=== PATIENT | female | born 1940 | race Caucasian/White ===

== ENCOUNTER → 2023-08-29 18:23 | Outpatient (REF) | payer MEDICARE, BC, SELFPAY ==
[2023-08-29 19:40] LABS: Urine Albumin Negative (Neg - Trace); Urine Bilirubin Negative (Negative); Urine Character Clear (Clear); Urine Color Yellow; Urine Glucose Negative (Negative); Urine Ketone Negative (Negative); Urine Leukocyte 2+ (Negative); Urine Nitrite Negative (Negative); Urine Occult Blood Negative (Negative); Urine Urobilinogen 2+ (Neg - 1+)
[2023-08-29 19:52] LABS: Urine Squamous Cell >30 /LPF (Few)
[2023-08-29 19:53] LABS: Urine Bacteria Many (Negative); Urine Red Blood Cell 0-2 /HPF (0-2); Urine White Cell 40-50 /HPF (0-5)
== END ==
LOC: OLABWHC 18:23
PROVIDERS: ATTENDING PHYSICIAN Family Medicine
DX: N39.0 Urinary tract infection, site not specified (principal)
CPT/HCPCS: 81003; 81015; 87077; 87086; 87186

== ENCOUNTER 2023-09-01 18:41 | Inpatient (IN) | payer MEDICARE, BC, SELFPAY ==
[2023-09-01] VITALS (8 sets, daily range): BP systolic 130–157; BP diastolic 69–84; BMI 26.0; BMI 24.5
[2023-09-01 15:28] LABS: % Basophils 0.7 % (0-2); % Eosinophils 2.1 % (0-6); % Immature Granulocytes 0.3 % (0-0.5); % Lymphocytes 17.3 % (20.5-51.1); % Monocytes 7.6 % (1.7-9.3); Absolute Basophils 0.1 10^3/uL (0-0.2); Absolute Eosinophils 0.2 10^3/uL (0-0.7); Absolute Lymphocytes 1.3 10^3/uL (1.2-3.4); Absolute Monocytes 0.6 10^3/uL (0.1-0.6); Absolute Neutrophils 5.4 10^3/uL (1.4-6.5); Hematocrit 35.2 % (37.0-47.0); Mean Corp Hgb Conc. 34.1 g/dL (33.0-37.0); Mean Corpuscular Hgb 30.8 pg (27.0-31.0); Mean Corpuscular Volume 90.5 fL (81.0-99.0); Mean Platelet Volume 8.8 fL (7.4-10.4); Nucleated Red Blood Cells % 0 %; Platelet Count 276 10^3/uL (130-400); Red Blood Cell Count 3.89 10^6/uL (4.20-5.40); Red Cell Dist. Width 13.4 % (11.5-14.5); White Blood Cell Count 7.5 10^3/uL (4.8-10.8)
[2023-09-01 15:41] LABS: ALT (SGPT) 24 U/L (0-35); AST (SGOT) 31 U/L (14-36); Albumin 4.1 g/dl (3.5-5.0); Alkaline Phosphatase 115 U/L (38-126); Blood Urea Nitrogen 17 mg/dl (7-17); Calcium 9.1 mg/dl (8.4-10.2); Carbon Dioxide 24 mmol/L (22-30); Chloride 106 mmol/L (98-107); Estimated Creatinine Clearance 31 ml/min; Glucose 117 mg/dl (70-99); Potassium 3.5 mmol/L (3.5-5.1); Sodium 138 mmol/L (135-145); Total Bilirubin 0.4 mg/dl (0.2-1.3); eGFR 49.24
[2023-09-01 16:03] LABS: Urine Albumin Trace (Neg - Trace); Urine Bilirubin Negative (Negative); Urine Character Very Cloudy (Clear); Urine Color Yellow; Urine Glucose Negative (Negative); Urine Ketone Trace (Negative); Urine Leukocyte 2+ (Negative); Urine Nitrite Negative (Negative); Urine Occult Blood Trace (Negative); Urine Specific Gravity 1.015 (<1.030); Urine Urobilinogen 1+ (Neg - 1+)
[2023-09-01 16:23] LABS: Urine Bacteria Many (Negative); Urine Red Blood Cell 0-2 /HPF (0-2); Urine Squamous Cell >30 /LPF (Few); Urine White Cell 50-60 /HPF (0-5)
--- NOTE | 2023-09-01 16:57 | ED.GENMED ---
History of Present Illness
General
Chief Complaint: Urinary Symptoms
Source: patient
Exam Limitations: none
Time Seen by Provider: 09/01/23 15:41
Nursing documentation reviewed up to this point in time: agreed with
Travel History
Have you had any contact with someone who has COVID-19?: No
Do you have any symptoms of coronavirus? Fever > 100 degrees, chills, cough, shortness of breath, sore throat, loss of taste or smell, muscle aches, or headache?: No
History of Present Illness
History of Present Illness:
83-year-old female with past medical history of hypertension hyperlipidemia dementia anemia anxiety depression presenting to the emergency department today with concerns of altered mental status and difficulty with ambulation. She was also found to
have a urinary tract infection a few days ago but was not treated.
Past History
Past History
ED Past Medical History: HTN, Hypercholesterolemia, Psychiatric (Depression, anxiety) and Other (Dementia, iron deficiency anemia)
ED Past Surgical History: None
Social History
Tobacco: Former smoker
Personal:
Living: assisted living
Employment: Retired
Review of Systems
Review of Systems
Allergies reviewed?: Yes
All Other Systems: ROS reviewed and negative except as documented in HPI and ROS
Phy Exam
Physical Exam
Physical Exam:
GENERAL: Alert , in no apparent distress
EYE: pupils equal and reactive
NECK: Supple, no significant adenopathy.
ENT: o/p clr, mmm.
CARDIAC: Regular rate and rhythm .
LUNGS: Clear breath sounds bilaterally, no acute respiratory distress, no wheezes/rales/rhonchi
ABDOMEN: Soft, without focal tenderness, no r/g, no cvat
NEUROLOGICAL: Alert, no focal neuro deficits
SKIN: Warm and dry, skin intact.
MUSCULOSKELETAL: No edema, well perfused.
PSYCH: Normal and appropriate interaction.
Course
Orders/Labs/Results
Orders:
Orders
09/01/23 15:21
CMP [Comprehensive Metabolic Panel] Urgent
Complete Blood Count/With Diff Urgent
09/01/23 15:45
Urinalysis Reflex To Culture Urgent
Date Specimen was Collected: 09/01/23
Time Specimen was Collected: 15:43
Urine Microscopic Reflex Cult Urgent
Urine Culture Urgent
ANABELLA Source: U
Specimen Description:
Date Specimen was Collected: 09/01/23
Time Specimen was Collected: 15:43
09/01/23 16:57
CefTRIAXone [Rocephin] 2,000 mg IV NOW STA
09/01/23 17:00
Case Management Consult ONCE
Case Management Consult: Discharge Planning
09/01/23 17:11
CR Hand - Right Min 3 Views Urgent
Comment:
Reason For Exam: hand injury
Abnormal Lab Results
09/01/23 09/01/23
15:21 15:45
RBC 3.89 L 10^6/uL
(4.20-5.40)
Hct 35.2 L %
(37.0-47.0)
Lymphocytes % 17.3 L %
(20.5-51.1)
Creatinine 1.1 H mg/dL
(0.6-1.0)
Glucose 117 H mg/dl
(70-99)
Urine Ketones Trace A
(Negative)
Ur Occult Blood Reflex Trace A
(Negative)
Leukocyte Esterase Rfl 2+ A
(Negative)
Urine WBC (Reflex) 50-60 A /HPF
(0-5)
Urine Bacteria (Reflex) Many A
(Negative)
09/01/23 15:21
09/01/23 15:21
Vital Signs
Initial and Last Documented VS:
Initial Vital Signs
Temp Pulse Resp BP Pulse Ox
98.1 F 69 18 130/73 94
09/01/23 14:57 09/01/23 14:57 09/01/23 14:57 09/01/23 14:57 09/01/23 14:57
Last Documented Vital Signs
Temp Pulse Resp BP Pulse Ox
98.1 F 69 18 130/73 94
09/01/23 14:57 09/01/23 14:57 09/01/23 14:57 09/01/23 14:57 09/01/23 14:57
MDM/Problems Addressed
MDM/Problems Addressed:
83-year-old female presenting to the emergency department today with concerns of difficulty ambulating and increased weakness over the past 2 days confirm with UTI few days ago but was not treated at the time. On arrival here vital signs are normal
urinalysis appears to be consistent with UTI as well as her outpatient labs appear to be consistent with UTI and started on antibiotics. Concerning she is unable to walk and is not in a facility that currently would be able to accommodate a higher
level of care plan to admit overnight for reassessment and hopeful improvement.
*Critical Care Note
Total Time (30-74mins, 75-104mins- exclusive of procedures): Not Applicable
ED Attending Note
-
Portions of this chart may have been created with voice recognition software.� Occasional wrong word or��sound alike� substitutions may have occurred due to the inherent limitations of voice recognition software.
Discharge Plan
Departure
Patient Disposition: Admit
Date of Disposition: 09/01/23
Time of Disposition: 17:12
Admit to: Med/Surg
Admit to doctor: Valeriy
Presentation/result/management discussed w/ accepting MD/DO: Hospitalist
Patient with high blood pressure during this ER visit?: No
Condition: Good
Covid-19: Not Applicable
Discharge Problem:
UTI (urinary tract infection), Fall
Prescriptions:
No Action
acetaminophen 325 MG tablet
650 mg PO Q6HPRN PRN (Reason: mild pain/fever)
donepezil 10 MG tablet
10 mg PO HS
melatonin 5 MG tablet
5 mg PO HS
therapeutic multivitamin Tablet
1 tab PO DAILY
guaifenesin 100 mg/5 mL Liquid
200 mg PO Q6H PRN (Reason: cough)
cranberry extract 250 mg Capsule
250 mg PO DAILY
magnesium hydroxide [Milk of Magnesia] 400 mg/5 mL Suspension
30 ml PO DAILY PRN (Reason: if no BM in 3 days)
bisacodyl 10 mg Suppository
10 mg FL DAILY PRN (Reason: if no BM in 8 hr after MOM)
irbesartan-hydrochlorothiazide 300-12.5 mg Tablet
1 tab PO DAILY
Fleet Enema 19-7 gram/118 mL Enema
118 ml FL DAILY PRN (Reason: if no BM 4 hr after bisacodyl supp)
pantoprazole 40 MG tablet,delayed release (DR/EC)
40 mg PO DAILY
aspirin 325 mg Tablet
325 mg PO DAILY Qty: 30 0RF
atorvastatin 10 mg Tablet
10 mg PO QPM Qty: 30 0RF
tramadol 50 mg Tablet
50 mg PO Q6HPRN PRN (Reason: SEVERE PAIN) Qty: 14 0RF
amoxicillin-pot clavulanate 875-125 mg Tablet
1 tab PO Q12 Qty: 4 0RF
Referrals:
Jorge Luis Colbert MD [Family Provider] -
Interventions
Interventions:
*Risk Screen - Suicide Last Done: 09/01/23 14:57
*General Assessment Last Done: 09/01/23 15:01
*Neglect/Abuse Screening Last Done: 09/01/23 15:01
ED- Fall Risk Assessment Last Done: 09/01/23 15:03
*ED COVID-19 Vaccine History Last Done: 09/01/23 15:01
ED-Female Genitourinary Assessment Last Done: 09/01/23 15:03
[2023-09-01] MEDS: ROCEPHIN 2000 MG IV (17:35)
--- NOTE | 2023-09-01 17:38 | HPS.HSE ---
Addendum entered and electronically signed by Holly Lara MD 09/01/23 18:34:
pt seen and examined independently--agree with EMT DISPATCHER note
GENERAL: well developed, well nourished, female in no apparent distress
HEENT: NC/AT--no O2 neds
HEART: regular rate and rhythm, +S1, +S2
LUNGS : clear to auscultation bilaterally
ABDOM: soft, nontender, nondistended, + bowel sounds
EXT: no cyanosis, clubbing, or edema--right 5th finger with deformity (? Dupuytren's contracture?)
NEUROLOGIC: apparent dementia--moves all extremities
Ambulatory dysfunction/falls/generalized weakness--likely from UTI but UA from 08/28 AND 08/31 both show > 30 squamous cells/hpf indicating not clean sample (contaminant)---Hand x-ray with no acute fracture or dislocation--check head CT for
completeness, recheck st cath specimen for UA C&S--nevertheless, will treat with rocephin in the interim--bladder scan--PT/OT
Suspected Urinary tract infection but both samples are not clean catch (see above)--recheck st cath --cont rocephin and follow cultures
Acute kidney injury likely from dehydration--Creatinine 1.1--normal saline continued--monitor BMP in am
Dementia--cont aricept--pt lives at [facility]
Depression/anxiety--cont Abilify Bupropion, BuSpar, duloxetine
essential HTN--hold losartan and HCTZ due to ARA
GERD--PPI continued
HLD--statin continued
DVT prophylaxis--heparin sq
Code status --DNR
Original Note:
Family Physician
-
Family Physician: Jorge Luis Colbert
Chief Complaint
-
confusion
generalized weakness
fall
History of Present Illness
83-year-old female with past medical history of hypertension hyperlipidemia dementia anemia anxiety depression presenting to the emergency department today with concerns of change in MS, weakness, fall. daughter stated urinary frequency and
dribbling for past few days. she was tested positive for UA on Sunday. she was not started on abx as they were waiting for urine culture. for past few days, patient had multiple falls. today she was found on the floor by nurses. she is
complaining of left hand pain since then. denied fever, chills, MULLINS,dizzy or syncopal episode. denied chest pain, sob. denied abdominal pain, n,v,d. denied dysuria or hematuria.
positive UA in ER. received a dose of ceftriaxone in ER. admitting for further management.
Medical History
Past Medical History
Past Medical History: Reports Other
Additional Past Medical History:
dementia
HTn
HLD
iron def anemia
colon cancer
depression
anxiety
UTI
Past Surgical History: Reports Other
Additional Past Surgical History:
colon resection
left upper arm surgery
torn rotation cuff
Social History
Tobacco: Non-smoker
Alcohol: Occasional
Drug: None
Personal: Single
Living: Assisted Living
Family History
Family History: Not pertinent
Allergies / Home Medications
Allergies reflects when Allergies were last updated in [facility].
Home Medications with original date entered in [facility]
Allergy/Medication List:
Allergies
Allergy/AdvReac Type Severity Reaction Status Date / Time
peanut Allergy Unknown Verified 02/09/23 08:02
Home Medications
acetaminophen 325 mg tablet 650 mg PO Q6HPRN PRN mild pain/fever 07/26/20
donepezil 10 mg tablet 10 mg PO HS Neurological Condition 07/26/20
melatonin 5 mg tablet 5 mg PO HS Sleep 07/26/20
bisacodyl 10 mg rectal suppository 10 mg CO DAILY PRN if no BM in 8 hr after MOM 02/09/23
cranberry extract 250 mg capsule 250 mg PO DAILY Supplement 02/09/23
guaifenesin 100 mg/5 mL oral liquid 200 mg PO Q6H PRN cough 02/09/23
irbesartan 300 mg-hydrochlorothiazide 12.5 mg tablet 1 tab PO DAILY Blood Pressure 02/09/23
magnesium hydroxide 400 mg/5 mL oral suspension (Milk of Magnesia) 30 ml PO DAILY PRN if no BM in 3 days 02/09/23
pantoprazole 40 mg tablet,delayed release 40 mg PO DAILY Gastrointestinal Issue 02/09/23
sodium phosphates 19 gram-7 gram/118 mL enema (Fleet Enema) 118 ml CO DAILY PRN if no BM 4 hr after bisacodyl supp 02/09/23
therapeutic multivitamin 1 tab PO DAILY Supplement 02/09/23
amoxicillin 875 mg-potassium clavulanate 125 mg tablet 1 tab PO Q12 #4 tabs 02/15/23
aspirin 325 mg tablet 325 mg PO DAILY #30 tabs 02/15/23
atorvastatin 10 mg tablet 10 mg PO QPM #30 tabs 02/15/23
tramadol 50 mg tablet 50 mg PO Q6HPRN PRN SEVERE PAIN #14 tabs 02/15/23
Review of Systems
-
Constitutional: Reports No Symptoms
EENT: Reports No Symptoms
Respiratory: Reports No Symptoms
Cardiac: Reports No Symptoms
Abdomen/GI: Reports No Symptoms
: Reports Other (frequency)
Musculoskeletal: Reports No Symptoms
Skin: Reports No Symptoms
Neurological: Reports No Symptoms
Endocrine: Reports No Symptoms
Hematologic/Lymphatic: Reports No Symptoms
Psych: Reports No Symptoms
Physical Exam
Vital Signs
Vital Signs
Temp Pulse Resp BP Pulse Ox
98.1 F 69 18 130/73 94
09/01/23 14:57 09/01/23 14:57 09/01/23 14:57 09/01/23 14:57 09/01/23 14:57
Physical Exam
General: Well Developed, Well Nourished and No Apparent Distress
HEENT: NormoCephalic, Moist mucous membranes and Atraumatic
Respiratory: Clear
Cardiac: S1/S2 and Regular Rhythm; No Murmur or Rub
GI: Soft, Non Tender, Non Distended and Normal Bowel Sounds; No Organomegaly
Rectal: Deferred by Provider
Musculoskeletal: No Clubbing, No Cyanosis and No Edema
Skin: No Rash
Neuro: AO x 3 and Nonfocal/grossly intact
Psych: Calm
Laboratory Results
-
09/01/23 15:21
09/01/23 15:21
Laboratory Results
Total Bilirubin 0.4 mg/dl (0.2-1.3) 09/01/23 15:21
AST 31 U/L (14-36) 09/01/23 15:21
ALT 24 U/L (0-35) 09/01/23 15:21
Alkaline Phosphatase 115 U/L (38-126) 09/01/23 15:21
Data Reviewed
-
Lab Data: Labs Reviewed by me
Impression/Plan
-
# Ambulatory dysfunction/fall/generalized weakness l likely from UTI
-Hand x-ray with no acute fracture or dislocation. Boutonniere deformity of the fifth digit. Diffuse demineralization. Moderate degenerative changes of the basal joint. Scattered mild to moderate osteoarthritic changes of the interphalangeal joints.
Soft tissues are grossly unremarkable.
-obtain CT of head
-PT/OT consulted
-fall precuation
# Urinary tract infection
-Urine culture pending
-iv ceftriaxone
-Tylenol prn for fever, pain
-Repeat straight cath and UA
# Acute kidney injury likely from dehydration
-Creatinine 1.1
-normal saline continued
-monitor BMP in am
#Dementia
#Depression anxiety
-Abilify Bupropion, BuSpar continued
-duloxetine continued
-Aricept continued
#essential HTN
-hold losartan and HCTZ due to ARA
#GERD
=PPI continued
#HLd
-statin continued
#DVT prophylaxis
-heparin sq
#DNR
--- NOTE | 2023-09-01 18:26 | PHANOTE ---
09/01/2023, med rec tech, used [place] paperwork to compile list of pt.'s meds.; [facility] only sent page 1 of 3 of pt.'s meds.; called pt.'s NH twice but was unsuccessful; could not confirm all of pt.'s meds.
[2023-09-01 19:45] LABS: Urine Albumin Trace (Neg - Trace); Urine Bilirubin Negative (Negative); Urine Character Slightly Cloudy (Clear); Urine Color Yellow; Urine Glucose Negative (Negative); Urine Ketone Trace (Negative); Urine Leukocyte 2+ (Negative); Urine Nitrite Positive (Negative); Urine Occult Blood 1+ (Negative); Urine Specific Gravity 1.015 (<1.030); Urine Urobilinogen 2+ (Neg - 1+); Urine pH 6.5 (5.0-9.0)
[2023-09-01 19:55] LABS: Urine Bacteria Moderate (Negative); Urine White Cell 80-90 /HPF (0-5)
--- NOTE | 2023-09-01 21:00 | PTCARENOTE ---
Received patient from ED via stretcher. Patient ambulated from stretcher to bed x2 assist with RW. Patient is oriented to self only, confused, yelling out at times. Urgency and frequency with urination. No complaints of pain at this time. Bed alarm
and medsitter placed for safety. Oriented patient to room and placed call rdz within reach.
[2023-09-01] MEDS: MELATONIN 5 MG PO (21:10)
[2023-09-01] MEDS: ARICEPT 10 MG PO (21:10)
[2023-09-01] MEDS: LIPITOR 10 MG PO (21:10)
[2023-09-01] MEDS: ABILIFY 5 MG PO (21:10)
[2023-09-01] MEDS: HEPARIN 5000 UNITS SC (21:10)
[2023-09-01] MEDS: NSS 1000 IV (21:12)
[2023-09-01] MEDS: BUSPAR 15 MG PO (21:25)
[2023-09-02 07:55] VITALS: BP 137/73
[2023-09-02 08:13] LABS: Hematocrit 38.2 % (37.0-47.0); Hemoglobin 12.6 g/dL (12.0-16.0); Mean Corpuscular Hgb 30.1 pg (27.0-31.0); Mean Corpuscular Volume 91.4 fL (81.0-99.0); Mean Platelet Volume 9.5 fL (7.4-10.4); Platelet Count 248 10^3/uL (130-400); Red Blood Cell Count 4.18 10^6/uL (4.20-5.40); Red Cell Dist. Width 13.2 % (11.5-14.5)
[2023-09-02] MEDS: PROTONIX 40 MG PO (08:15)
[2023-09-02] MEDS: HEPARIN 5000 UNITS SC ×2 (08:16→19:08)
[2023-09-02] MEDS: BUSPAR 15 MG PO ×4 (08:16→19:11)
[2023-09-02] MEDS: WELLBUTRIN XL (24 hour extended release) 150 MG PO (08:16)
[2023-09-02] MEDS: CYMBALTA DELAYED RELEASE 60 MG PO (08:16)
[2023-09-02 09:02] LABS: Blood Urea Nitrogen 16 mg/dl (7-17); Calcium 8.7 mg/dl (8.4-10.2); Carbon Dioxide 22 mmol/L (22-30); Chloride 107 mmol/L (98-107); Estimated Creatinine Clearance 44 ml/min; Glucose 95 mg/dl (70-99); Potassium 3.4 mmol/L (3.5-5.1); Sodium 140 mmol/L (135-145); eGFR > 60.00
[2023-09-02 09:40] VITALS: BP 100/60; BP 117/61; PULSE 66; O2SAT 95
[2023-09-02 10:02] VITALS: BP 145/68; PULSE 78
[2023-09-02] MEDS: NSS 1000 IV (11:06)
--- NOTE | 2023-09-02 12:32 | W.PN.HOSP.TC ---
Today's Communication/Plan
-
follow cultures
stop IVF
PT/OT
rocephin
Assessment / Plan
Assessment / Plan
pt is an 83 year old female
Ambulatory dysfunction/falls/generalized weakness--likely from UTI�but UA from 08/28 AND 08/31 both show > 30 squamous cells/hpf indicating not clean sample (contaminant)--repeat st cath UA adequate, culture from 08/28 shows E. coli, cont
rocephin---Hand x-ray with no acute fracture or dislocation--head CT neg--PT/OT both saying SNF vs home health
Suspected Urinary tract infection but both samples are not clean catch (see above)--recheck st cath appropriate --cont rocephin and follow cultures
hypokalemia -- replete
Acute kidney injury likely from dehydration--Creatinine 0.8--stop IVF
Dementia--cont aricept--pt lives at [facility]
Depression/anxiety--cont Abilify Bupropion, BuSpar, duloxetine
essential HTN--restart losartan and hold HCTZ
GERD--PPI continued
HLD--statin continued
DVT prophylaxis--heparin sq
Code status --DNR
Anticipated Discharge: 24 - 48 hours
Subjective/Interval History
-
Date of Service: September 02, 2023
pt eating lunch
Objective Data
-
Labs:
Laboratory Results
09/02/23
06:18
WBC 7.0
Hgb 12.6
Hct 38.2
Plt Count 248
Sodium 140
Potassium 3.4 L
Chloride 107
Carbon Dioxide 22
BUN 16
Creatinine 0.8
Glucose 95
Calcium 8.7
Vital Signs:
max temp for 24 hours
09/01/23
23:42
Temp 98.5 F
Vital Signs
Temp Pulse Resp BP Pulse Ox
98.2 F 64 20 137/73 95
09/02/23 07:55 09/02/23 07:55 09/02/23 07:55 09/02/23 07:55 09/02/23 10:37
I&O
09/01/23 09/02/23 09/03/23
06:59 06:59 06:59
Intake Total 480 / 480
Balance 480 / 480
Review of Systems
-
All other systems: Reviewed and negative
Physical Exam
-
General: Well Developed, Well Nourished and No Apparent Distress
HEENT: Normocephalic and Atraumatic
Respiratory: Clear to Auscultation; Negative Wheezes or Rhonchi
Cardiac: Regular Rhythm and S1/S2; Negative Murmur
GI: Soft, Nontender, Nondistended and Normal Bowel Sounds
Musculoskeletal: No Clubbing, No Cyanosis and No Edema
Skin: Warm
Neuro: Awake
Psych: Calm and Apparent Dementia
[2023-09-02] MEDS: KCL 40 MEQ PO (12:46)
--- NOTE | 2023-09-02 13:59 | PTCARENOTE ---
Patient screaming throughout shift to be placed on bed latham. Once bed latham is removed patient is requesting to be placed back on bed latham within a short amount of time with little to no urinary output. Educated patient that sitting on bed latham senior living
will call pressure ulcers. Despite education patient is screaming to to be on bed latham. Nursing shop supervisor made aware. Attempt redirection with assistance from carmen martinez. Patient with history of dementia.
[2023-09-02] MEDS: ATIVAN 0.25 MG IV (14:31)
--- NOTE | 2023-09-02 14:43 | PTCARENOTE ---
PRN IV ativan administered see AUG. Family now sitting with patient, update provided.
--- NOTE | 2023-09-02 15:45 | CM ---
Alert confused patient who lives at [facility] for last [address] weeks[address]oke with daughter Onelia way who said she wants her mo to return [facility] at or.She uses no adaptive devices.PT OT said SNF VS VN .She is assisted in all activities of daily
living.
No adaptive devices
Never had VN/Was in [place] and does not want to return
Pharmacy [facility]
PCP Dr Colbert
PLAN Would like to return to [facility] if possible
[2023-09-02 15:51] VITALS: BP 122/67
[2023-09-02] MEDS: ROCEPHIN 1000 MG IV (17:15)
[2023-09-02] MEDS: STERILE WATER FOR INJECTION 10 ML IV (17:15)
[2023-09-02] MEDS: ARICEPT 10 MG PO (19:07)
[2023-09-02] MEDS: LIPITOR 10 MG PO (19:08)
[2023-09-02] MEDS: ABILIFY 5 MG PO (19:08)
[2023-09-02] MEDS: MELATONIN 5 MG PO (19:08)
[2023-09-02] MEDS: DESENEX/MITRAZOL/ZEASORB 1 APPLIC TOPICAL (19:11)
[2023-09-02 23:44] VITALS: BP 153/78
[2023-09-03 07:26] LABS: Hematocrit 37.8 % (37.0-47.0); Hemoglobin 12.7 g/dL (12.0-16.0); Mean Corp Hgb Conc. 33.6 g/dL (33.0-37.0); Mean Corpuscular Hgb 30.2 pg (27.0-31.0); Mean Platelet Volume 9.2 fL (7.4-10.4); Platelet Count 236 10^3/uL (130-400); White Blood Cell Count 6.7 10^3/uL (4.8-10.8)
[2023-09-03 07:30] VITALS: BP 172/98
[2023-09-03 08:08] LABS: Blood Urea Nitrogen 12 mg/dl (7-17); Calcium 8.9 mg/dl (8.4-10.2); Carbon Dioxide 22 mmol/L (22-30); Chloride 108 mmol/L (98-107); Estimated Creatinine Clearance 44 ml/min; Glucose 99 mg/dl (70-99); Magnesium 1.8 mg/dl (1.6-2.3); Potassium 3.8 mmol/L (3.5-5.1); Sodium 138 mmol/L (135-145); eGFR > 60.00
[2023-09-03] MEDS: CYMBALTA DELAYED RELEASE 60 MG PO (09:15)
[2023-09-03] MEDS: WELLBUTRIN XL (24 hour extended release) 150 MG PO (09:15)
[2023-09-03] MEDS: PROTONIX 40 MG PO (09:15)
[2023-09-03] MEDS: COZAAR 100 MG PO (09:15)
[2023-09-03] MEDS: HEPARIN 5000 UNITS SC ×2 (09:16→19:40)
[2023-09-03] MEDS: DESENEX/MITRAZOL/ZEASORB 1 APPLIC TOPICAL ×2 (09:16→19:40)
[2023-09-03] MEDS: BUSPAR 15 MG PO ×4 (09:57→19:41)
--- NOTE | 2023-09-03 13:14 | W.PN.HOSP.TC ---
Today's Communication/Plan
-
see A/P
Assessment / Plan
Assessment / Plan
A/P:
# Ambulatory dysfunction/falls/generalized weakness, likely from UTI�
Urine Cx (although with contaminant) from 08/28 grew E coli
repeat Urine Cx from 08/31 neg
cont Rocephin, can DC with cefdinir x3 days
Of note, Hand x-ray with no acute fracture or dislocation, Head CT neg
PT/OT both saying SNF vs home health
# hypokalemia
repleted K and resolved
# Acute kidney injury, resolved
# Dementia
cont Aricept
pt lives at [facility]
# Depression/anxiety
cont Abilify Bupropion, BuSpar, duloxetine
# Essential HTN
restarted losartan
Hold [employer] HCTZ
Add Norvasc 2.5 mg
# GERD
PPI continued
# HLD
statin continued
DVT prophylaxis--heparin sq
Code status --DNR
Dispo: return to [facility] if possible�
updated daughter on the phone. She is hoping pt could work work with PT, making sure her weakness has improved, prior to discharge
total time spent 51 min
Anticipated Discharge: Within 24 hours
Subjective/Interval History
-
Date of Service: September 03, 2023
Objective Data
-
Labs:
Laboratory Results
09/03/23
06:51
WBC 6.7
Hgb 12.7
Hct 37.8
Plt Count 236
Sodium 138
Potassium 3.8
Chloride 108 H
Carbon Dioxide 22
BUN 12
Creatinine 0.8
Glucose 99
Calcium 8.9
Vital Signs:
Vital Signs
Temp Pulse Resp BP Pulse Ox
36.9 C 78 18 172/98 96
09/03/23 07:30 09/03/23 09:15 09/03/23 07:30 09/03/23 09:15 09/03/23 09:10
I&O
09/02/23 09/03/23 09/04/23
06:59 06:59 06:59
Intake Total 480 / 480 1050 / 1050
Balance 480 / 480 1050 / 1050
Review of Systems
-
All other systems: Reviewed and negative
Physical Exam
-
General: Well Developed, Well Nourished, No Apparent Distress, Comfortable and Conversant
HEENT: Normocephalic and Atraumatic
Respiratory: Clear to Auscultation and Non Labored Respirations; Negative Wheezes, Rhonchi or Accessory Resp Muscle Use
Cardiac: Regular Rhythm and S1/S2; Negative Murmur
GI: Soft, Nontender, Nondistended and Normal Bowel Sounds
Musculoskeletal: No Clubbing, No Cyanosis and No Edema
Skin: Warm
Neuro: Awake
Psych: Calm and Apparent Dementia
Data Reviewed
-
Labs: Labs Reviewed by me
[2023-09-03] MEDS: NORVASC 2.5 MG PO (13:40)
[2023-09-03 14:27] VITALS: BP 131/84; BP 145/88; PULSE 80; O2SAT 96
[2023-09-03 14:52] VITALS: BP 131/84
[2023-09-03 15:30] VITALS: BP 140/78
--- NOTE | 2023-09-03 16:08 | PTCARENOTE ---
Pt AAO to self/birthdate only, repeatedly questions 'Where am I?' and 'What is happening to me?'. CAZARES; OOB to chair/BSC/BRP with assist x1; pt impulsive and unsteady; fall prec maintained. Pt re-oriented as needed. VSS. On room air-pulse ox 96%,
no c/o SOB. Abd soft, rounded, travis PO well. Voiding clear yellow urine in BSC/BR; denies urgency/discomfort. Resting in chair at present; daughter at bedside. Will continue to monitor.
--- NOTE | 2023-09-03 17:22 | CM ---
Spoke with both sister Chante and Onelia.
PT OT recommended return to assisted living [facility].
Spoke with [facility] Zorabritney faxed PT OT evals to her . She said she can accpet her tomorrow after she sets up 1:1 nursing as family has requested.Sharon said sge will set up PT OT upon return.
At this time Onelia said she would drive her back to .
PLAN Return to [facility] report [phone] fax dc summary to [phone]
[2023-09-03] MEDS: ROCEPHIN 1000 MG IV (17:56)
[2023-09-03] MEDS: FLUSH (NSS) 1 FLUSH IV (17:56)
[2023-09-03] MEDS: STERILE WATER FOR INJECTION 10 ML IV (17:56)
[2023-09-03] MEDS: ABILIFY 5 MG PO (19:39)
[2023-09-03] MEDS: MELATONIN 5 MG PO (19:39)
[2023-09-03] MEDS: ARICEPT 10 MG PO (19:39)
[2023-09-03] MEDS: LIPITOR 10 MG PO (19:39)
[2023-09-03] MEDS: ATIVAN 0.25 MG IV (20:45)
[2023-09-03] MEDS: NSS (PRESERVATIVE FREE) 0.125 ML IV (20:45)
[2023-09-04 07:00] VITALS: BP 142/81
[2023-09-04 07:55] LABS: Hematocrit 38.5 % (37.0-47.0); Hemoglobin 13.1 g/dL (12.0-16.0); Mean Corpuscular Hgb 30.5 pg (27.0-31.0); Mean Corpuscular Volume 89.5 fL (81.0-99.0); Mean Platelet Volume 9.6 fL (7.4-10.4); Platelet Count 241 10^3/uL (130-400); Red Cell Dist. Width 13.2 % (11.5-14.5); White Blood Cell Count 6.6 10^3/uL (4.8-10.8)
[2023-09-04 08:19] LABS: Blood Urea Nitrogen 14 mg/dl (7-17); Calcium 8.9 mg/dl (8.4-10.2); Carbon Dioxide 24 mmol/L (22-30); Chloride 107 mmol/L (98-107); Estimated Creatinine Clearance 39 ml/min; Glucose 100 mg/dl (70-99); Magnesium 1.7 mg/dl (1.6-2.3); Potassium 3.7 mmol/L (3.5-5.1); Sodium 138 mmol/L (135-145); eGFR > 60.00
[2023-09-04] MEDS: PROTONIX 40 MG PO (08:38)
[2023-09-04] MEDS: WELLBUTRIN XL (24 hour extended release) 150 MG PO (08:38)
[2023-09-04] MEDS: CYMBALTA DELAYED RELEASE 60 MG PO (08:38)
[2023-09-04] MEDS: COZAAR 100 MG PO (08:38)
[2023-09-04] MEDS: DESENEX/MITRAZOL/ZEASORB 1 APPLIC TOPICAL (08:39)
[2023-09-04] MEDS: NORVASC 2.5 MG PO (08:39)
[2023-09-04] MEDS: BUSPAR 15 MG PO ×2 (08:40→12:17)
[2023-09-04] MEDS: HEPARIN 5000 UNITS SC (08:40)
--- NOTE | 2023-09-04 11:39 | PN.CDI ---
CDI
- -
CDI:
Physician Documentation Request
Admit Date: 09/01/23 18:41
Dear Doctor Elpidio,
Please review the following and provide your response in the progress notes.
Clinical Indicators:
- per H&P 'concerns of change in MS'
- baseline dementia
- RN notes 'Patient is oriented to self only, confused, yelling out at times'
- 'pt impulsive and unsteady'
- 09/02 PN indicate patient admit for UTI
Based on the above, please clarify which, if any of the following, is the most likely etiology of the confusion/altered mental status.
Metabolic encephalopathy due to UTI
Dementia with acute delirium - indicate type fo dementia, such as Alzheimer's, senile, vascular, Lewy body etc.
Baseline Dementia - indicate type, such as Alzheimer's, senile, vascular, Lewy body etc., and any associated behavioral disturbances (aggressive, combative or violent behavior) if present
Acute or subacute confusional state due to (specify known or suspected etiology)
Other
Use of terms such as suspected, likely, concern for, or probable (associated with a specific diagnosis that is being evaluated, monitored, or treated as if it exists) are acceptable and can be coded in the inpatient setting, when documented at the
time of discharge.
Thank you,
Omkar Robles RN
CDI Specialist
Please use your independent medical judgment in providing your response.
--- NOTE | 2023-09-04 11:46 | W.PN.HOSP.TC ---
Addendum entered and electronically signed by Leticia Magallanes MD 09/05/23 16:22:
# Metabolic encephalopathy due to UTI
Addendum entered and electronically signed by Leticia Magallanes MD 09/04/23 12:51:
total DC time 35 min
Original Note:
Today's Communication/Plan
-
DC to SNF today
Assessment / Plan
Assessment / Plan
A/P:
# Ambulatory dysfunction/falls/generalized weakness, likely from UTI�
Urine Cx (although with contaminant) from 08/28 grew E coli
repeat Urine Cx from 08/31 neg
cont Rocephin and DC with cefdinir x3 days
Of note, Hand x-ray with no acute fracture or dislocation, Head CT neg
PT/OT both saying SNF vs home health, daughter elected SNF
# hypokalemia
repleted K and resolved
# Acute kidney injury, resolved
# Dementia
cont Aricept
pt lives at [facility]
# Depression/anxiety
cont Abilify Bupropion, BuSpar, duloxetine
# Essential HTN
restarted losartan
Hold [employer] MEMBER HCTZ
Added Norvasc 2.5 mg, cont
# GERD
PPI continued
# HLD
statin continued
DVT prophylaxis--heparin sq
Code status --DNR
Dispo: SNF
DW RN
Anticipated Discharge: Today
Subjective/Interval History
-
Date of Service: September 04, 2023
Objective Data
-
Labs:
Laboratory Results
09/04/23
06:33
WBC 6.6
Hgb 13.1
Hct 38.5
Plt Count 241
Sodium 138
Potassium 3.7
Chloride 107
Carbon Dioxide 24
BUN 14
Creatinine 0.9
Glucose 100 H
Calcium 8.9
Vital Signs:
Vital Signs
Temp Pulse Resp BP Pulse Ox
36.8 C 96 18 142/81 95
09/04/23 07:00 09/04/23 08:39 09/04/23 07:00 09/04/23 08:39 09/04/23 08:33
I&O
09/03/23 09/04/23 09/05/23
06:59 06:59 06:59
Intake Total 1050 / 1050 1440 / 1440
Balance 1050 / 1050 1440 / 1440
Review of Systems
-
Unable to obtain full review of systems at this time due to: Dementia
All other systems: Reviewed and negative
Physical Exam
-
General: Well Developed, Well Nourished, No Apparent Distress, Comfortable and Conversant
HEENT: Normocephalic and Atraumatic
Respiratory: Clear to Auscultation and Non Labored Respirations; Negative Wheezes, Rhonchi or Accessory Resp Muscle Use
Cardiac: Regular Rhythm and S1/S2; Negative Murmur
GI: Soft, Nontender, Nondistended and Normal Bowel Sounds
Musculoskeletal: No Clubbing, No Cyanosis and No Edema
Skin: Warm
Neuro: Awake
Psych: Calm and Apparent Dementia
Data Reviewed
-
Labs: Labs Reviewed by me
--- NOTE | 2023-09-04 12:43 | CM ---
CM reviewed pt with Dr Magallanes and pt ready for dc
Call with nursing/[facility]
Pt accepted back for admission today and 1:1 nursing has been set up at [facility] care facility
Pt will need hard script for outpt PT/OT
CM updated pharmacy on chart to [facility]
Update to dtr/Onelia who will transport on dc
IMM verbally reviewed- copy provided bedside for her arrival later today
Therapy script on chart
Discharge Disposition- return [facility] with outpt therapy- family transport
Phone- [phone] Fax- [phone]
--- NOTE | 2023-09-04 12:45 | W.DCSUMMARY ---
Discharge Summary
Discharge Data
Date of Admission: 09/01/23
Date of Discharge: 09/04/23
-
Pending Results: No
Hospital Course
Principal Diagnosis:
Ambulatory dysfunction/generalized weakness with mechanical fall due to UTI�
Acute kidney injury, resolved
Chronic Diagnoses:�
Dementia
Depression/anxiety, mood stable on Abilify, Bupropion, duloxetine
Essential Hypertension, discontinued HCTZ and added Norvasc 2.5 mg
Gastroesophageal reflux disease
Hyperlipidemia
Consultations:�
None
Procedures:�
None
Clinical course:�
This is a 83-year-old female, with past medical history as stated above, who presented with ambulatory dysfunction, generalized weakness and mechanical fall.
Problem 1:
Ambulatory dysfunction/generalized weakness with mechanical fall due to UTI�
Her urine culture from 08/28 (although contaminated) grew E coli. Repeat urine culture (after antibiotic) from 08/31 was negative for growth.
She received Rocephin while in the hospital and was discharged with Cefdinir x3 more days.
As for the rest of her medical problems, they were stable during her hospital stay.
Discharge Plan
-
Patient Disposition: Home with Home Care
Discharge Diagnosis/Procedures: Ambulatory dysfunction/falls/generalized weakness due to urinary tract infection
Condition: Fair
Diet: As tolerated
Activity: As tolerated
Driving Restrictions: No driving
Bathing Restrictions: None
Referrals:
Jorge Luis Colbert MD [Family Provider] - in less than 1 week
Additional Discharge Medication Instructions: Continue Cefdinir for 3 more days
Added Norvasc 2.5 mg to better control your blood pressure.
Stop HCTZ.
Prescriptions:
New
amlodipine 2.5 mg Tablet
2.5 mg PO DAILY 3 Days Qty: 3 0RF
cefdinir 300 mg capsule
300 mg PO Q12H 3 Days Qty: 6 0RF
Continued
acetaminophen 325 MG tablet
650 mg PO Q6HPRN PRN (Reason: mild pain/fever)
donepezil 10 MG tablet
10 mg PO DAILY@1999
melatonin 5 MG tablet
5 mg PO DAILY@1999
therapeutic multivitamin Tablet
1 tab PO DAILY
guaifenesin 100 mg/5 mL Liquid
200 mg PO Q6H PRN (Reason: cough)
magnesium hydroxide [Milk of Magnesia] 400 mg/5 mL Suspension
30 ml PO DAILY PRN (Reason: if no BM in 3 days)
bisacodyl 10 mg Suppository
10 mg IL DAILY PRN (Reason: if no BM in 8 hr after MOM)
Fleet Enema 19-7 gram/118 mL Enema
118 ml IL DAILY PRN (Reason: if no BM 4 hr after bisacodyl supp)
pantoprazole 40 MG tablet,delayed release (DR/EC)
40 mg PO DAILY
aspirin 325 mg Tablet
325 mg PO DAILY Qty: 30 0RF
losartan 100 mg Tablet
100 mg PO DAILY
buspirone 15 mg Tablet
15 mg PO QID@0800,12,16,20
aripiprazole 5 mg Tablet
5 mg PO DAILY@1999
bupropion HCl 150 mg Tablet Extended Release 24 Hr
150 mg PO DAILY
duloxetine 60 mg Capsule,Delayed Release(Dr/Ec)
60 mg PO DAILY
zinc oxide-vitamin B5-vit E 11.3 % Cream
1 applic TOPICAL BID@799,1999
cranberry 450 mg Tablet
450 mg PO DAILY
atorvastatin 10 mg tablet
10 mg PO DAILY@1999
Discontinued
tramadol 50 mg Tablet
50 mg PO Q6HPRN PRN (Reason: SEVERE PAIN) Qty: 14 0RF
hydrochlorothiazide 12.5 mg Tablet
12.5 mg PO DAILY
Discharge Orders:
Discharge Patient (As Directed); Ordered 09/04/23
Ordered By: Leticia Magallanes
[2023-09-04 13:40] VITALS: BP 134/84
== END 2023-09-04 14:32 | disposition home health service (06) | DRG 682 ==
LOC: 4 EAST ACU 18:41
PROVIDERS: Physician Assistant; Registered Nurse; ADMITTING PHYSICIAN Internal Medicine; ATTENDING PHYSICIAN Internal Medicine; EMERGENCY PHYSICIAN Emergency Medicine; FAMILY PHYSICIAN Family Medicine
DX: N17.9 Acute kidney failure, unspecified (principal); G93.41 Metabolic encephalopathy; F03.93 Unspecified dementia, unspecified severity, with mood disturbance; N39.0 Urinary tract infection, site not specified; F03.94 Unspecified dementia, unspecified severity, with anxiety; Z87.891 Personal history of nicotine dependence; E86.0 Dehydration; K21.9 Gastro-esophageal reflux disease without esophagitis; Z66 Do not resuscitate; I10 Essential (primary) hypertension; E87.6 Hypokalemia; E78.00 Pure hypercholesterolemia, unspecified
CPT/HCPCS: 70450; 73130; 80048; 80053; 81003; 81015; 83735; 85025; 85027; 87077; 87086; 87186; 97116; 97162; 97166; 97535; 99285

== ENCOUNTER → 2024-02-28 14:29 | Outpatient (REF) | payer MEDICARE, BC, SELFPAY ==
[2024-02-28 15:56] LABS: Urine Albumin Trace (Neg - Trace); Urine Bilirubin Negative (Negative); Urine Character Clear (Clear); Urine Color Yellow; Urine Glucose Negative (Negative); Urine Ketone Negative (Negative); Urine Leukocyte Negative (Negative); Urine Nitrite Negative (Negative); Urine Occult Blood Negative (Negative); Urine Urobilinogen Negative (Neg - 1+)
== END ==
LOC: OLABBH 14:29
PROVIDERS: ATTENDING PHYSICIAN Family Medicine
DX: N39.0 Urinary tract infection, site not specified (principal); R30.0 Dysuria
CPT/HCPCS: 81003